=== PATIENT | female | born 2000 | race Caucasian/White ===

== ENCOUNTER 2023-05-05 08:07 | Emergency (ER) | payer OTHER ==
[~2023-05-05] VITALS: Ht 167.6 cm; Wt 54.4 kg
[2023-05-05 08:13] VITALS: BP 100/62; PULSE 98; RESP 18; TEMP 98; O2SAT 98
[2023-05-05] MEDS ORDERED: LIDOCAINE/EPI MPF 1%1:200000 30 ML VIAL INJ ONE (08:43)
[2023-05-05] MEDS ORDERED: LIDOCAINE MPF 1% 10 MG/ML VIAL INJ ONE (08:45)
[2023-05-05] MEDS ORDERED: BACITRACIN OINT 500 UNITS/GM PKT TP ONE (09:05)
[2023-05-05 09:40] VITALS: BP 116/68; PULSE 76; RESP 16; TEMP 97.8; O2SAT 99
== END 2023-05-05 09:41 | disposition home or self-care (01) ==
LOC: MED 08:07
DX: S01.81XA Laceration without foreign body of other part of head, initial encounter (principal); F90.9 Attention-deficit hyperactivity disorder, unspecified type; W05.1XXA Fall from non-moving nonmotorized scooter, initial encounter; Y93.89 Activity, other specified; Y92.89 Other specified places as the place of occurrence of the external cause; Y99.8 Other external cause status
CPT/HCPCS: 12013; 90471; 90715; 99283; J2001